=== PATIENT | female | born 1975 | race Hispanic/Latino ===

== ENCOUNTER 2016-06-09 13:23 | Emergency (ER) | payer BC ==
[2016-06-09 15:30] LABS: Basophils % (Auto) 0.8 % (0.0-1.8); Eosinophils % (Auto) 2.4 % (0.0-4.3); Hemoglobin 11.6 gm/dl (10.1-14.3); Mean Corpuscular HGB Conc 32 % (30-34); Mean Corpuscular Volume 74 fl (79-97); Platelet Count 256 K/mm3 (140-440); Red Blood Count 4.86 M/mm3 (3.65-5.03); Red Cell Distribution Width 16.8 % (13.2-15.2); White Blood Count 8.4 K/mm3 (4.5-11.0)
[2016-06-09 15:32] LABS: Mean Corpuscular Hemoglobin 24 pg (28-32)
[2016-06-09 15:44] LABS: Anion Gap 19 mmol/L; Blood Urea Nitrogen 9 mg/dL (7-17); Calcium 9.1 mg/dL (8.4-10.2); Carbon Dioxide 25 mmol/L (22-30); Glucose 103 mg/dL (65-100); Potassium 3.9 mmol/L (3.6-5.0); Sodium 139 mmol/L (137-145)
[2016-06-09 16:17] LABS: Bacteria,Urine 2+ /HPF (Negative); Bilirubin,Urine NEG (Negative); Blood,Urine SM (Negative); Ketones,Urine NEG (Negative); Leukocyte Esterase,Urine LG (Negative); Mucus,Urine 3+ /HPF; Nitrite,Urine POS (Negative); Urobilinogen,Urine < 2.0 mg/dL (<2.0)
[2016-06-09 16:21] LABS: WBC,Urine > 182.0 /HPF (0.0-6.0)
--- NOTE | 2016-06-09 17:30 | Emergency Department Report ---
Entered by SHIRA NICHOLS, acting as scribe for SHARATH VIGIL PA. Chief Complaint: Abdominal Pain Stated Complaint: KIDNEY PAIN Time Seen by Provider: 06/09/16 16:25 - HPI History of Present Illness: 41 y/o female presents c/o throbbing kidney pain that started 3 days ago. Sx include left side back pain, chills, "pressure" during urination and foul smelling urine but pt denies fever, +-hematuria, vaginal bleeding or vaginal discharge. Pt notes having kidney problems since she was a child but has had no pain recently. LMP 06/04/16. - ROS Review of Systems: as noted in HPI - Exam Vital Signs: Vital Signs 06/09/16 14:49 Temperature 98.7 F Pulse Rate 72 Respiratory 16 Rate Blood Pressure 128/84 O2 Sat by Pulse 100 Oximetry Physical Exam: General: 41-year-old female in no acute distress. Well-developed, well- nourished. CV: Regular rate and rhythm. No murmurs rubs or gallops. Lungs: Clear to auscultation bilaterally. Abdomen: No tenderness to palpation. No guarding or rebound tenderness. Normal bowel sounds. Mini Neuro: Alert and oriented 3. MSE screening note: Focused history and physical exam performed. Due to findings the following was ordered: ED Medical Decision Making - Lab Data Result diagrams: 06/09/16 15:08 06/09/16 15:08 ED Disposition for MSE Condition: Stable Instructions: Abdominal Pain (ED) This documentation as recorded by the scribe,SHIRA NICHOLS,accurately reflects the service I personally performed and the decisions made by me,SHARATH VIGIL PA.
--- NOTE | 2016-06-09 18:23 | Emergency Department Report ---
HPI - General Chief Complaint: Abdominal Pain Time Seen by Provider: 06/09/16 17:29 - HPI HPI: 41 y/o female presents c/o throbbing kidney pain that started 3 days ago. Sx include left side back pain, chills, "pressure" during urination and foul smelling urine but pt denies fever, +-hematuria, vaginal bleeding or vaginal discharge. Pt notes having kidney problems since she was a child but has had no pain recently. LMP 06/04/16. Patient complaining of bilateral flank pain that is worse on the left side. She denies any fever or chills. Reported that her urine has a strong odor and she is having pressure and urgency. Denies any frequency or burning. Denies any nausea vomiting. Denies any fever or chills. Reports abdominal pain 8 out of 10 that comes and goes and crampy. Last menstrual period was 06/02/2016. She reports that she is able to tolerate fluids without any nausea vomiting. ED Past Medical Hx - Past Medical History Previous Medical History?: No - Surgical History Past Surgical History?: Yes Additional Surgical History: tubal ligation - Family History Family history: hypertension - Social History Smoking Status: Never Smoker Substance Use Type: None - Medications Home Medications: Home Medications Medication Instructions Recorded Confirmed Last Taken Type Naproxen [Naprosyn] 500 mg PO BID PRN #12 tablet 06/09/16 Unknown Rx Nitrofurantoin Arroyo/M-Cryst 100 mg PO Q12HR #14 capsule 06/09/16 Unknown Rx [Macrobid CAP] ED Review of Systems ROS: Stated complaint: KIDNEY PAIN Other details as noted in HPI Comment: All other systems reviewed and negative Constitutional: denies: chills, fever Respiratory: no symptoms reported. denies: shortness of breath, SOB with exertion, SOB at rest, stridor, wheezing Cardiovascular: denies: chest pain, palpitations, edema, syncope Gastrointestinal: abdominal pain. denies: nausea, vomiting, diarrhea Genitourinary: urgency. denies: dysuria, frequency, hematuria, discharge, abnormal menses, dyspareunia Musculoskeletal: back pain. denies: arthralgia Skin: denies: rash Neurological: denies: headache Physical Exam - Physical Exam Vital Signs: Vital Signs 06/09/16 14:49 Temperature 98.7 F Pulse Rate 72 Respiratory 16 Rate Blood Pressure 128/84 O2 Sat by Pulse 100 Oximetry General: 41-year-old female well-nourished well-developed in no acute distress. Physical Exam: Head: Normocephalic atraumatic Neck: Supple, no C-spine tenderness, no tracheal deviation. Nontender to palpate. no adenopathy Abdomen: Soft, nontender to palpate in all quadrants, normal bowel sounds in all quadrant and negative CVA tenderness bilaterally. Back: No vertebral or paraspinal tenderness. No saddle anesthesia. Patient able to ambulate without any difficulties. Negative SLR bilaterally. Eyes: Bilateral pupils equal and reactive to light, bilateral EOM intact. Bilateral sclera and conjunctiva without injection. Normal accommodation. Lungs: Clear to auscultate bilaterally no rhonchi wheezes or rales. Normal work of breathing extremity; No CCE. +2 pulses. No neurovascular compromise Cardiovascular: S1-S2, regular rate rhythm. No murmurs. Skin: clean Dry and intact no rash no lesions Psych: Normal mood and behavior ED Course Vital Signs 06/09/16 14:49 Temperature 98.7 F Pulse Rate 72 Respiratory 16 Rate Blood Pressure 128/84 O2 Sat by Pulse 100 Oximetry - Reevaluation(s) Reevaluation #1: 06/09/16 19:18 Patient tolerating oral liquids in emergency room without any difficulties. given Rocephin 1 g IM and emergency room for urinary tract infection. She is able to tolerate oral liquids in emergency room without any difficulties 06/09/16 19:26 ED Medical Decision Making - Lab Data Result diagrams: 06/09/16 15:08 06/09/16 15:08 Lab Results 06/09/16 06/09/16 06/09/16 Range/Units 15:08 15:08 15:53 WBC 8.4 (4.5-11.0) K/mm3 RBC 4.86 (3.65-5.03) M/mm3 Hgb 11.6 (10.1-14.3) gm/dl Hct 36.0 (30.3-42.9) % MCV 74 L (79-97) fl MCH 24 L (28-32) pg MCHC 32 (30-34) % RDW 16.8 H (13.2-15.2) % Plt Count 256 (140-440) K/mm3 Lymph % (Auto) 23.0 (13.4-35.0) % Arroyo % (Auto) 6.0 (0.0-7.3) % Eos % (Auto) 2.4 (0.0-4.3) % Baso % (Auto) 0.8 (0.0-1.8) % Lymph # 1.9 (1.2-5.4) K/mm3 Arroyo # 0.5 (0.0-0.8) K/mm3 Eos # 0.2 (0.0-0.4) K/mm3 Baso # 0.1 (0.0-0.1) K/mm3 Seg Neutrophils % 67.8 (40.0-70.0) % Seg Neutrophils # 5.7 (1.8-7.7) K/mm3 Sodium 139 (137-145) mmol/L Potassium 3.9 (3.6-5.0) mmol/L Chloride 99.0 (98-107) mmol/L Carbon Dioxide 25 (22-30) mmol/L Anion Gap 19 mmol/L BUN 9 (7-17) mg/dL Creatinine 1.0 (0.7-1.2) mg/dL Estimated GFR > 60 ml/min BUN/Creatinine Ratio 9.00 % Glucose 103 H (65-100) mg/dL Calcium 9.1 (8.4-10.2) mg/dL Urine Color Yellow (Yellow) Urine Turbidity Cloudy (Clear) Urine pH 6.0 (5.0-7.0) Ur Specific [place] 1.013 (1.003-1.030) Urine Protein 100 mg/dl (Negative) mg/dL Urine Glucose (UA) Neg (Negative) mg/dL Urine Ketones Neg (Negative) mg/dL Urine Blood Sm (Negative) Urine Nitrite Pos (Negative) Urine Bilirubin Neg (Negative) Urine Urobilinogen < 2.0 (<2.0) mg/dL Ur Leukocyte Esterase Lg (Negative) Urine WBC (Auto) > 182.0 H (0.0-6.0) /HPF Urine RBC (Auto) 14.0 (0.0-6.0) /HPF U Epithel Cells (Auto) 4.0 (0-13.0) /HPF Urine Bacteria (Auto) 2+ (Negative) /HPF Urine WBC Clumps 3+ /HPF Urine Mucus 3+ /HPF Urine HCG, Qual Negative (Negative) Urine culture pending - Medical Decision Making ED course: Patient here reports flank pain and abdominal pain with strong odor to urine. Urinalysis shows that she has large leukocyte Estrace, greater than 182 white blood cell with positive bacteria and positive nitrites small amount of blood negative . I discussed the patient and she was given Rocephin 1 g IM and emergency room for urinary tract infection. Diagnosis and treatment plan the patient and expressed that she needs to follow-up with her primary care physician in 2-3 days and if she does not have a primary care physician she should follow-[facility] with [facility] [place]. She says she does have a primary care physician. Patient discharged home with prescription for Macrobid and Phenergan. Critical care attestation.: If time is entered above; I have spent that time in minutes in the direct care of this critically ill patient, excluding procedure time. ED Disposition Clinical Impression: Acute cystitis without hematuria Abdominal pain Qualifiers: Abdominal location: left lower quadrant Qualified Code(s): R10.32 - Left lower quadrant pain Back pain Qualifiers: Back pain location: low back pain Chronicity: acute Back pain laterality: bilateral Sciatica presence: without sciatica Qualified Code(s): M54.5 - Low back pain Disposition: DISCHARGED TO HOME OR SELFCARE Is pt being admited?: No Does the pt Need Aspirin: No Condition: Stable Instructions: Abdominal Pain (ED), Urinary Tract Infection in Women (ED), Back Pain (ED) Additional Instructions: Please increase her fluid intake to 2-3 L of fluid per day. Follow up Primary care physician in 2-3 days Take Antibiotic as prescribed. Prescriptions: Naproxen [Naprosyn] 500 mg PO BID PRN #12 tablet PRN Reason: Pain Nitrofurantoin Arroyo/M-Cryst [Macrobid CAP] 100 mg PO Q12HR #14 capsule Referrals: LESLIE PERRY MD [Primary Care Provider] - 2-3 Days Forms: Work/School Release Form(ED)
[2016-06-09] MEDS ORDERED: ROCEPHIN IM ONE (18:24)
[2016-06-09] MEDS ORDERED: TORADOL IM ONE (18:24)
[2016-06-09] MEDS ORDERED: ZOFRAN ORAL LIQ PO ONE (18:24)
[2016-06-09] MEDS ORDERED: XYLOCAINE 1% MPF 5 mL INFILTRATI ONE (18:24)
[2016-06-09 20:54] VITALS: BP 104/73
== END 2016-06-09 19:36 | disposition home or self-care (01) ==
LOC: ED 13:23
DX: N30.00 Acute cystitis without hematuria (principal); R10.32 Left lower quadrant pain; M54.5 Low back pain
CPT/HCPCS: 36415; 80048; 81001; 81025; 85025; 87076; 87086; 87186; 96372; 99283; J0696; J1885; Q0162